=== PATIENT | male | born 1970 | race Caucasian/White ===

== ENCOUNTER 2019-12-22 07:29 | Emergency (ER) | payer MEDICAID ==
[~2019-12-22] VITALS: Ht 172.7 cm; Wt 75.7 kg
[2019-12-22] MEDS ORDERED: SODIUM CHLORIDE 0.9% 1,000 ML IV ONE (08:25)
[2019-12-22] MEDS ORDERED: MORPHINE SULFATE 4 MG/ML CPJ (NOT FOR IM USE) IV STA (08:25)
[2019-12-22] MEDS ORDERED: ONDANSETRON HCL 4MG/2ML INJ IV STA (08:25)
[2019-12-22 09:07] LABS: INR 0.9; PROTHROMBIN TIME 9.7 sec (9.6-11.0)
[2019-12-22 09:08] LABS: CHLORIDE 100 mEq/L (98-107)
[2019-12-22 09:28] LABS: BASOPHILS % 0.4 % (0.0-2.0); EOSINOPHILS % 1.4 % (0.0-5.0); HEMATOCRIT. 43.7 % (42.0-52.0); HEMOGLOBIN. 15.2 g/dL (14.0-18.0); LYMPHOCYTES % 32.4 % (20.0-50.0); MEAN CORPUSCULAR HEMOGLOBIN 31.2 pg (28.0-32.0); MEAN CORPUSCULAR VOLUME 89.4 fL (80.0-94.0); MEAN PLATELET VOLUME 8.5 fl (7.4-10.4); MONOCYTES % 6.8 % (2.0-8.0); PLATELET 239 x1000/uL (130-400); RED BLOOD CELL COUNT 4.89 mill/uL (4.7-6.1); RED CELL DISTRIBUTION WIDTH 13.1 % (11.6-14.6)
[2019-12-22 10:47] LABS: CLARITY URINE CLEAR (CLEAR); COLOR URINE YELLOW (YELLOW); KETONES URINE NEGATIVE (NEGATIVE); LEUKOCYTE ESTERASE URINE NEGATIVE (NEGATIVE); NITRITE URINE NEGATIVE (NEGATIVE); OCCULT BLOOD URINE NEGATIVE (NEGATIVE); PROTEIN URINE TRACE (NEGATIVE); SPECIFIC GRAVITY URINE 1.041 (1.005-1.030); UROBILINOGEN URINE 0.2 E.U./dL (0.2-1.0)
[2019-12-22 11:44] VITALS: BP 137/81
== END 2019-12-22 11:49 | disposition home or self-care (01) ==
LOC: ER 07:29 → CANBEDREQ 11:15 → ER 11:49
DX: K40.90 Unilateral inguinal hernia, without obstruction or gangrene, not specified as recurrent (principal); E11.65 Type 2 diabetes mellitus with hyperglycemia; I10 Essential (primary) hypertension
CPT/HCPCS: 36415; 74177; 80053; 81003; 83690; 85025; 85610; 96361; 96374; 96375; 99285; J2270; J2405; J7030; 99284

== ENCOUNTER 2025-01-30 13:26 | Inpatient (IN) | payer MEDICAID ==
[~2025-01-30] VITALS: Ht 175.3 cm; Wt 68.1 kg
[~2025-01-30 13:26] MED LIST: AMI2 MT; INSU100I28 SQ
[2025-01-30 14:20] LABS: BASOPHILS % 0.4 % (0.0-2.0); EOSINOPHILS % 0.4 % (0.0-5.0); HEMOGLOBIN. 10.9 g/dL (14.0-18.0); LYMPHOCYTES % 11.2 % (20.0-50.0); MEAN CORPUSCULAR HEMOGLOBIN 29.5 pg (28.0-32.0); MEAN CORPUSCULAR HGB CONC 33.2 g/dL (31.0-37.0); MONOCYTES % 5.5 % (2.0-8.0); NEUTROPHILS % 82.5 % (40.0-76.0); PLATELET 537 x1000/uL (130-400); RED BLOOD CELL COUNT 3.71 mill/uL (4.7-6.1); RED CELL DISTRIBUTION WIDTH 13.4 % (11.6-14.6); WHITE BLOOD COUNT 14.9 x1000/uL (4.5-11.0)
[2025-01-30] MEDS: PIPERACILLIN/TAZO 3.375G/50ML 50 ML IV ONE (14:21)
[2025-01-30] MEDS: VANCOMYCIN 1G PREMIX 200 ML IV ONE (14:21)
[2025-01-30] MEDS: SODIUM CHLORIDE 0.9% (SEPSIS BOLUS) IV ONE (14:22)
[2025-01-30 14:28] LABS: CHLORIDE 98 mEq/L (98-107); POTASSIUM 4.3 mEq/L (3.5-5.1); SODIUM 133 mEq/L (136-145)
[2025-01-30 14:29] LABS: CARBON DIOXIDE 27 mEq/L (21-32)
[2025-01-30 14:30] LABS: INR 1.1; PROTHROMBIN TIME 11.9 sec (9.6-11.0)
[2025-01-30 14:34] LABS: CREATININE 1.1 mg/dL (0.6-1.3); GLUCOSE 201 mg/dL (70-105); UREA NITROGEN BLOOD 8 mg/dL (9-23)
[2025-01-30 14:36] LABS: ALANINE AMINOTRANSFERASE 48 IU/L (10-49); ALBUMIN 4.2 g/dL (3.2-4.8); ASPARTATE AMINOTRANSFERASE 17 IU/L (<34); BILIRUBIN DIRECT 0.2 mg/dL (<=3.0); BILIRUBIN TOTAL 0.5 mg/dL (0.1-1.0); PROTEIN TOTAL 8.1 g/dL (6.0-8.3); TROPONIN I HIGH SENSITIVITY 14 ng/L (3.0-53)
[2025-01-30] MEDS ORDERED: ONDANSETRON HCL 4MG/2ML INJ IV PRN (16:00)
[2025-01-30] MEDS ORDERED: CLINDAMYCIN 600MG PREMIX 50 ML IV NR (16:39)
[2025-01-30] MEDS: PANTOPRAZOLE SODIUM 40 MG/VIAL IV SCH (16:49)
[2025-01-30 17:23] VITALS: BP 118/83; PULSE 75; RESP 20; TEMP 36.4; O2SAT 98
[2025-01-30] MEDS: LACTULOSE 20G/30ML UDC PO SCH (19:39)
[2025-01-30] MEDS: ACETAMINOPHEN 325MG TABLET PO PRN (19:40)
[2025-01-30 20:00] VITALS: BP 134/62; PULSE 64; RESP 16; TEMP 36.4; O2SAT 99
[2025-01-31] VITALS: BP 118/64; PULSE 59; RESP 18; TEMP 36.4; O2SAT 99
[2025-01-31] MEDS: SODIUM CHLORIDE 0.9% 1,000 ML IV SCH ×2 (00:47→18:10)
[2025-01-31 04:00] VITALS: BP 126/63; PULSE 67; RESP 18; TEMP 36.4; O2SAT 98
[2025-01-31 06:41] LABS: BASOPHILS % 0.3 % (0.0-2.0); EOSINOPHILS % 0.6 % (0.0-5.0); HEMOGLOBIN. 9.9 g/dL (14.0-18.0); LYMPHOCYTES % 11.5 % (20.0-50.0); MEAN CORPUSCULAR HEMOGLOBIN 29.6 pg (28.0-32.0); MEAN CORPUSCULAR HGB CONC 33.2 g/dL (31.0-37.0); MEAN CORPUSCULAR VOLUME 89.2 fL (80.0-94.0); MEAN PLATELET VOLUME 7.9 fl (7.4-10.4); MONOCYTES % 7.1 % (2.0-8.0); NEUTROPHILS % 80.5 % (40.0-76.0); PLATELET 463 x1000/uL (130-400); RED BLOOD CELL COUNT 3.36 mill/uL (4.7-6.1); RED CELL DISTRIBUTION WIDTH 13.1 % (11.6-14.6); WHITE BLOOD COUNT 14.4 x1000/uL (4.5-11.0)
[2025-01-31 06:57] LABS: CHLORIDE 107 mEq/L (98-107); POTASSIUM 3.8 mEq/L (3.5-5.1); SODIUM 138 mEq/L (136-145)
[2025-01-31 06:58] LABS: CALCIUM 8.7 mg/dL (8.7-10.4); CARBON DIOXIDE 24 mEq/L (21-32)
[2025-01-31 07:03] LABS: CREATININE 0.7 mg/dL (0.6-1.3); GLUCOSE 136 mg/dL (70-105); UREA NITROGEN BLOOD 8 mg/dL (9-23)
[2025-01-31 08:00] VITALS: BP 140/86; PULSE 65; RESP 20; TEMP 36.4; O2SAT 99
[2025-01-31] MEDS: ASPIRIN 81MG TABLET PO SCH (09:00)
[2025-01-31] MEDS: ENOXAPARIN 40MG/0.4ML SYR SUBCUT SCH (09:00)
[2025-01-31] MEDS ORDERED: HEPARIN 1000 UNITS/ML 10ML ONE ×2 (09:38→11:47)
[2025-01-31] MEDS ORDERED: IODIXANOL 320 MG/ML 150ML BOTTLE IV ONE (09:38)
[2025-01-31] MEDS ORDERED: MIDAZOLAM HCL 2 MG/2 ML VIAL ONE (10:34)
[2025-01-31] MEDS ORDERED: FENTANYL CITRATE/PF 50MCG/ML 2ML VIAL ONE (10:34)
[2025-01-31] MEDS ORDERED: LIDOCAINE HCL 1% 20ML VIAL ONE (10:56)
[2025-01-31] MEDS ORDERED: ALTEPLASE 2MG/VIAL ONE (11:27)
[2025-01-31 12:00] VITALS: BP 123/69; PULSE 62; RESP 20; TEMP 36.7; O2SAT 99
[2025-01-31] MEDS ORDERED: CLOPIDOGREL 75MG TABLET ONE (12:23)
[2025-01-31 16:00] VITALS: BP 132/64; PULSE 76; RESP 20; TEMP 36.7; O2SAT 97
[2025-01-31 20:00] VITALS: BP 113/69; PULSE 72; RESP 20; TEMP 36.8; O2SAT 97
[2025-02-01] VITALS: BP 107/58; RESP 22; TEMP 36.7; O2SAT 97
[2025-02-01 04:00] VITALS: BP 117/63; RESP 23; O2SAT 96
[2025-02-01 08:00] VITALS: BP 111/88; PULSE 69; RESP 25; TEMP 36.7; O2SAT 99
[2025-02-01] MEDS: CLOPIDOGREL 75MG TABLET PO SCH (08:58)
[2025-02-01 12:00] VITALS: BP 114/65; PULSE 68; RESP 22; TEMP 36.8; O2SAT 98
[2025-02-01] MEDS: SODIUM HYPOCHLORITE 0.125% 473ML SOLUTION TOP SCH (13:30)
[2025-02-01] MEDS: PIPERACILLIN/TAZO 3.375G/50ML 50 ML IV SCH (13:30)
[2025-02-01 16:00] VITALS: BP 117/63; PULSE 66; RESP 21; TEMP 37.1; O2SAT 98
[2025-02-01 20:00] VITALS: BP 114/64; PULSE 64; RESP 22; TEMP 37.2; O2SAT 97
[2025-02-02] VITALS (7 sets, daily range): BP systolic 103–123; BP diastolic 50–68; PULSE 63–69; RESP 18–23; TEMP 36.9–37.6; O2SAT 96–98
[2025-02-02] MEDS ORDERED: SULF1TAB48 MT (11:24)
[2025-02-02 12:03] LABS: BASOPHILS % 0.4 % (0.0-2.0); EOSINOPHILS % 0.4 % (0.0-5.0); HEMATOCRIT. 25.9 % (42.0-52.0); HEMOGLOBIN. 8.9 g/dL (14.0-18.0); LYMPHOCYTES % 16.7 % (20.0-50.0); MEAN CORPUSCULAR HEMOGLOBIN 29.8 pg (28.0-32.0); MEAN CORPUSCULAR HGB CONC 34.4 g/dL (31.0-37.0); MEAN CORPUSCULAR VOLUME 86.8 fL (80.0-94.0); MEAN PLATELET VOLUME 7.4 fl (7.4-10.4); MONOCYTES % 6.4 % (2.0-8.0); NEUTROPHILS % 76.1 % (40.0-76.0); PLATELET 425 x1000/uL (130-400); RED BLOOD CELL COUNT 2.98 mill/uL (4.7-6.1); RED CELL DISTRIBUTION WIDTH 13.2 % (11.6-14.6); WHITE BLOOD COUNT 11.1 x1000/uL (4.5-11.0)
[2025-02-02] MEDS: MULTIVITAMINS,THER W-MINERALS TABLET PO SCH (15:56)
[2025-02-02] MEDS: ASCORBIC ACID 500 MG TABLET PO SCH (15:56)
[2025-02-03] VITALS: BP 115/43; PULSE 72; RESP 12; TEMP 36.8; O2SAT 99
[2025-02-03 04:00] VITALS: BP 110/67; PULSE 77; RESP 21; O2SAT 96
[2025-02-03] MEDS: PANTOPRAZOLE 40MG DR TABLET PO SCH (06:41)
[2025-02-03 08:00] VITALS: BP 110/60; PULSE 66; RESP 12; TEMP 36.8; O2SAT 98
[2025-02-03 13:00] VITALS: BP 113/65; PULSE 62; RESP 21; TEMP 37.1; O2SAT 100
[2025-02-03 16:00] VITALS: BP 106/57; PULSE 58; RESP 17; TEMP 37; O2SAT 99
[2025-02-03 20:00] VITALS: BP 110/59; PULSE 59; RESP 20; TEMP 37; O2SAT 99
[2025-02-04] VITALS: BP 123/67; PULSE 57; RESP 13; TEMP 37.2; O2SAT 95
[2025-02-04 04:00] VITALS: BP 106/67; PULSE 72; RESP 16; TEMP 36.8; O2SAT 99
[2025-02-04 08:00] VITALS: BP 112/65; PULSE 55; RESP 19; TEMP 36.8; O2SAT 98
[2025-02-04 12:00] VITALS: BP 118/57; PULSE 55; RESP 12; TEMP 36.7; O2SAT 99
[2025-02-04 16:00] VITALS: BP 122/65; PULSE 56; RESP 20; TEMP 36.8; O2SAT 100
[2025-02-04] MEDS ORDERED: AMOX1TAB16 MT (17:16)
[2025-02-04 20:00] VITALS: BP 120/62; PULSE 63; RESP 21; TEMP 37.2; O2SAT 97
[2025-02-04] MEDS: NYSTATIN 100,000 UNITS/GM CREAM 15GM TOP SCH (21:20)
[2025-02-05] VITALS: BP 114/61; PULSE 60; RESP 14; TEMP 37.1; O2SAT 99
[2025-02-05 04:00] VITALS: BP 116/70; PULSE 61; RESP 20; TEMP 36.8; O2SAT 99
[2025-02-05 08:00] VITALS: BP 121/69; PULSE 64; RESP 15; TEMP 36.9; O2SAT 99
[2025-02-05 12:00] VITALS: BP 119/66; PULSE 58; RESP 26; TEMP 36.9; O2SAT 98
[2025-02-05 15:06] VITALS: BP 115/49; PULSE 62; TEMP 98.3; O2SAT 100
[2025-02-05 16:00] VITALS: BP 122/65; PULSE 58; RESP 25; TEMP 36.9; O2SAT 100
[2025-02-06] MEDS ORDERED: FAMOTIDINE 20MG TABLET PO SCH (09:00)
== END 2025-02-05 16:38 | disposition home or self-care (01) | DRG 710 ==
LOC: ER 13:26 → EDBEDREQ 15:36 → EDBEDREQTM 15:36 → ENRESERV 16:33 → 5WST 17:05 → 3WST 01-31 13:15
PROVIDERS: ADMIT Internal Medicine; ATTEND Internal Medicine
PROC: 047M341 Dilation of Right Popliteal Artery with Drug-eluting Intraluminal Device, using Drug-Coated Balloon, Percutaneous Approach (ICD-10-PCS; principal; 2025-01-31)
PROC: B41FYZZ Fluoroscopy of Right Lower Extremity Arteries using Other Contrast (ICD-10-PCS; 2025-01-31)
DX: A41.59 Other Gram-negative sepsis (principal); E11.52 Type 2 diabetes mellitus with diabetic peripheral angiopathy with gangrene; E11.40 Type 2 diabetes mellitus with diabetic neuropathy, unspecified; L97.518 Non-pressure chronic ulcer of other part of right foot with other specified severity; E87.1 Hypo-osmolality and hyponatremia; L03.115 Cellulitis of right lower limb; D64.9 Anemia, unspecified; E11.621 Type 2 diabetes mellitus with foot ulcer; I10 Essential (primary) hypertension; I77.1 Stricture of artery; R26.9 Unspecified abnormalities of gait and mobility; Z89.431 Acquired absence of right foot; Z59.00 Homelessness unspecified; Z98.62 Peripheral vascular angioplasty status
CPT/HCPCS: 36415; 37226; 71045; 73620; 75710; 80048; 80076; 83605; 83735; 83880; 84145; 84484; 85025; 85347; 86850; 86900; 87070; 87077; 87186; 93005; 93970; 97162; 99291; A4606; C1725; C1769; C1876; C1887; C1893; C2623; J1644; J1650; J2250; J2470; J2543; J2997; J3010; J3370; J3490; J7030; Q9967